=== PATIENT | male | born 1965 | race Caucasian/White ===

== ENCOUNTER 2019-08-20 09:28 | Outpatient (CLI) | payer BC, SELFPAY ==
[2019-08-20 10:11] LABS: Basophils Percent Auto 0.5 % (0.2-1.2); Eosinophils Absolute Auto 0.1 K/mm3 (0-0.3); Eosinophils Percent Auto 2.4 % (0-4.4); Hematocrit 43.7 % (42.0-52.0); Hemoglobin 14.9 g/dL (14.0-18.0); Immature Granulocyte Absolute 0.03 K/mm3 (0.00-0.031); Immature Granulocyte Percent A 0.5 % (0-0.5); Lymphocytes Absolute Auto 1.54 K/mm3 (0.9-3.2); Lymphocytes Percent Auto 26.4 % (18.3-44.2); Mean Corpuscular HGB Conc 34.1 g/dl (32-36); Mean Corpuscular Hemoglobin 31.6 pg (26-34); Mean Corpuscular Volume 92.6 fl (80-100); Mean Platelet Volume 11.4 fl (7.4-10.4); Monocytes Absolute Auto 0.6 K/mm3 (0.1-0.6); Monocytes Percent Auto 10.1 % (2.6-8.5); Neutrophils Absolute Auto 3.5 K/mm3 (1.3-6.7); Neutrophils Percent Auto 60.1 % (45.5-73.1); Platelet Count Result 155 k/mm3 (150-375); Red Blood Count 4.72 M/mm3 (4.6-6.20); Reticulocyte Hemoglobin Conten 37.4 pg (28.2-35.7); Reticulocyte Percent 1.59 % (0.7-4.3); Reticulocytes Absolute 0.08 B/L (32.2-175.7); White Blood Count 5.8 K/mm3 (4.5-10.0)
[2019-08-20 10:34] LABS: Alanine Aminotransferase 21 U/L (4-50); Albumin Level 4.3 g/dL (3.5-5.1); Alkaline Phosphatase 90 U/L (38-126); Aspartate Amino Transferase 32 U/L (17-59); Bilirubin,Total 0.3 mg/dL (0.2-1.3); Blood Urea Nitrogen 15 mg/dL (9-20); Calcium 9.1 mg/dL (8.4-10.2); Carbon Dioxide 27 mmol/L (22-30); Chloride 104 mmol/L (98-107); Estimated Glomerular Filt Rate > 60; Glucose 101 mg/dL (75-110); Potassium 4.1 mmol/L (3.4-5.0); Sodium 138 mmol/L (137-145)
[2019-08-20 10:55] LABS: Iron 134 ug/dL (49-181)
[2019-08-20 11:04] LABS: Percent Iron Saturation 39 % (20-50)
== END 2019-08-20 09:29 | disposition home or self-care (01) ==
DX: E83.119 Hemochromatosis, unspecified (principal)
CPT/HCPCS: 36415; 80053; 82728; 83540; 83550; 85025; 85046

== ENCOUNTER 2019-09-03 00:42 | Outpatient (CLI) | payer BC, SELFPAY ==
[2019-09-03 18:12] LABS: SARS-CoV-2 RNA PCR Negative
== END 2019-09-03 00:43 | disposition home or self-care (01) ==
LOC: ANHCOVIDDT 00:42
PROVIDERS: PCP Internal Medicine; Visit Provider Surgery
DX: Z20.828 Contact with and (suspected) exposure to other viral communicable diseases (principal); Z01.812 Encounter for preprocedural laboratory examination
CPT/HCPCS: 87635; C9803; U0003

== ENCOUNTER 2019-09-05 01:28 | Day surgery (SDC) | payer BC, SELFPAY ==
[2019-08-26 09:15] VITALS: BMI 30.7
[2019-09-05] VITALS (8 sets, daily range): BP systolic 102–122; BP diastolic 57–75; PULSE 69–84; RESP 10–20; TEMP 36.3–36.6; O2SAT 94–100
[2019-09-05] MEDS: LACTATED RINGERS 1,000 ML 30 ML IV CONT ×2 (08:51→10:55)
[2019-09-05] MEDS: IBUPROFEN IV 800 MG/200 ML 800 MG/200 ML BAG 400 MG IVPB (09:00)
--- NOTE | 2019-09-05 09:51 | P.PNAN_ITS ---
Anes - Initial Pre Proc Eval Procedure: Operation Date: 09/05/19 10:30 Proposed Procedures p Umbilical Hernia Repair, Possible Mesh - Alex Vo DO Date/Time: 09/05/19 09:51 Surgeon: Alex Vo DO Pre Op Diagnosis: umbilical hernia Patient Data Age: 53 Gender: M Height: 5 ft 11 in Weight: 101.1 kg Last Vital Signs Temp 36.6 C 09/05/19 09:06 Pulse 72 09/05/19 09:06 BP 116/75 09/05/19 09:06 Pulse Ox 97 09/05/19 09:06 Allergies Allergy/AdvReac Type Severity Reaction Status Date / Time No Known Allergies Allergy Verified 08/26/19 09:29 Home Medications Medication Instructions Recorded Confirmed Type epinephrine 0.3 mg/0.3 mL 0.3 mg IM ONCE 08/14/19 08/26/19 History injection, auto-injector Patient hx anesthesia problems: none Family hx anesthesia problems: none PMFSH Past Medical History Medical History Hemochromatosis Surgical History Surgical History H/O anterior cruciate ligament surgery Family History Family History Father Enlarged heart Mother Diabetes mellitus Sibling Stomach cancer Sibling Cancer Daughter Diabetes mellitus Other Cancer Social History Social History Smokeless tobacco user: chewing tobacco Alcohol intake: current Substance use: never Additional occupation/education comments: [employer]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 Questions were solicited and answers provided to the satisfaction of the patient/family/POA.
--- NOTE | 2019-09-05 10:01 | WPDHPUPDATE1 ---
History and Physical Update Update Date/Time: 09/05/19 10:01 History and Physical has been reviewed, including an updated exam of the patient. There are NO changes in the patient's condition. Risks, benefits, and alternatives have been discussed and questions answered. Patient agrees to proceed with procedure.
[2019-09-05] MEDS: ceFAZolin 2 GM/D5W 50 ML 2 GM/50 ML BAG IVPB (10:12)
[2019-09-05] MEDS: BUPIVACAINE/EPINEPHRINE 0.5% 30 ML VIAL INFILTRATE (10:34)
--- NOTE | 2019-09-05 11:04 | P.OP_ITS ---
Procedure Note - Detailed Date of procedure: 09/05/19 Pre-op diagnosis: umbilical hernia Post-op diagnosis: same Procedure performed: Umbilical hernia repair Description of procedure: * Procedure as well as risks, benefits, and al ternatives were discussed with the patient. Written consent was obtained and placed in chart prior to procedure. Patient was brought back to surgical suite. He was placed supine on operating table. He was then intubated by Anesthesia Department. His abdomen was prepped and draped in sterile fashion using chlorhexidine prep. 0.5% bupivacaine with epinephrine was infiltrated locally around the operative area. A 3 cm curvilinear incision was made just superior to the umbilicus using a 15 blade scalpel. Electrocautery was used for hemostasis and for dissection down through the subcutaneous fat. Hernia sac was encountered and this was carefully freed up from surrounding subcutaneous fat using electrocautery. The hernia sac was freed up all the way down to the level of the fascia, and then it was transected using electrocautery. The hernia sac was excised and sent to the lab for pathology. The umbilical stalk was then lifted off of the fascia with electrocautery. The hernia defect was then measured. This was measuring approximately 5 mm. The decision was made to repair this primarily using 0 Ethibond [id number] permanent sutures. The fascia of the hernia defect was then reapproximated over the mesh using 0 Ethibond [id number] sutures. The repair was inspected and appeared secure. 0.5% bupivacaine with epinephrine was infiltrated around the fascia and subcutaneous space. The umbilical stalk was then reapproximated to the fascia using a 3 0 Vicryl simple interrupted suture. The deep dermis was reapproximated using 3 0 Vicryl simple interrupted sutures, and then the skin was approximated using 4 Monocryl running subcuticular suture. Exofin glue was then applied on top. The patient was then awakened from anesthesia, extubated, and transferred to [facility]. Anesthesia: GLMA and local (0.5% bupivacaine with epinephrine) Surgeon: Alex Vo DO Estimated blood loss (mL): 5 Pathology: yes (Hernia sac) Complications: No immediate complications Condition: stable Disposition: same day Findings: Krishna is a 53 y/o female who presents with an umbilical hernia. He reports first noticing a bulge several months ago after losing about 40lbs. He states the area is completely asymptomatic. He does not experience pain with activity or overlying skin changes.The bulge is easily reducible. He was found to have an umbilical hernia protruding just superior to the umbilical stalk. Discussions were made with the patient about treatment options, and decision was made to proceed with umbilical hernia repair with possible mesh. Umbilical hernia repair was performed. The patient was found to have a hernia sac containing preperitoneal fat protruding just above the umbilical stalk. The hernia sac was excised and sent to the lab for pathology. The fascia was cleared circumferentially around the hernia and the hernia defect was measured. This was a very small hernia only measuring approximately 5 mm. The decision was made to close this primarily. A total of 3 sutures were placed transversely to close the hernia defect without tension. No other abnormalities were noted.
== END 2019-09-05 12:44 | disposition home or self-care (01) ==
PROVIDERS: PCP Internal Medicine; Visit Provider Surgery
PROC: (CPT 49585; principal; 2019-09-05 10:30)
DX: K42.9 Umbilical hernia without obstruction or gangrene (principal); F17.220 Nicotine dependence, chewing tobacco, uncomplicated; E66.9 Obesity, unspecified; Z68.31 Body mass index [BMI] 31.0-31.9, adult
CPT/HCPCS: 49585; 88300; J0690; J1100; J1741; J2250; J2405; J2704; J3010; J7120

== ENCOUNTER 2020-12-25 14:59 | Outpatient (CLI) | payer BC, SELFPAY ==
--- NOTE | ~2020-12-25 | XR_ITS ---
XR ankle LT min 3V DATE: 12/25/2020 15:20 INDICATION: Left lateral ankle pain and tenderness TECHNIQUE: 4 views COMPARISON: None FINDINGS: There are accessory ossicle subjacent to the tip of the medial malleolus, possibly accessor y ossicles or old ununited fractures. No recent fracture or dislocation of the ankle or disruption of the ankle mortise. No periosteal reac tion or bone destruction. Tibiotalar osteoarthritis. Posterior calcaneal enthesopathy. IMPRESSION: Tibiotalar osteoarthritis No recent fracture or dislocation Posterior calcaneal enthesopathy Reviewed, dictated and finalized at location A.
== END 2020-12-25 15:00 | disposition home or self-care (01) ==
LOC: CHSIMG 15:00
PROVIDERS: PCP Internal Medicine; Visit Provider Internal Medicine
DX: M25.572 Pain in left ankle and joints of left foot (principal)
CPT/HCPCS: 73610

== ENCOUNTER 2021-01-02 06:40 | Outpatient (CLI) | payer BC, SELFPAY ==
--- NOTE | ~2021-01-02 | MR_ITS ---
EXAMINATION: MR ankle LT wo con DATE: 01/02/2021 07:55 INDICATION: Chronic left ankle pain. TECHNIQUE: Magnetic resonance imaging (MRI) of the left ankle was performed without intravenous contr ast. Sequences included sagittal PD-weighted FS FSE, sagittal PD-weighted FSE, coronal PD-weighted FS FSE, coronal PD-weighted FSE, axial PD-weighted FS FSE, and axial PD-weighted FSE. COMPARISON: Left ankle radiographs 12/25/2020 FINDINGS: Medial ankle ligaments: There are changes of prior sprains of the deltoid ligament characterized by thickening and increased signal involving the superficial and deep components with heterotopic ossification within the ligamen t. Lateral ankle ligaments: There are changes of prior sprains of anterior talofibular ligament and calcaneofibular ligament david acterized by thickening and increased signal intensity. Posterior talofibular ligament is intact. The re are changes of prior sprains of anterior and posterior tibiofibular ligaments characterized by thi ckening and increased signal intensity. Tendons: Achilles tendon and the medial ankle tendons are normal. There is mild tenosynovitis of extensor digi torum. There is severe tendinopathy of peroneus brevis and peroneus longus tendons with near-complete tears. A skin marker overlies this area. Plantar fascia: There is mild plantar fasciitis characterized by thickening and increased signal in the central band. Bones/other: Bone alignment is normal. No fracture. There is mild osteoarthritis of many of the midfoot joints. Th ere is deep partial thickness cartilage loss in tibiotalar joint. There are osteochondral lesions of the medial and lateral talar domes. Fluid: There is a small subtalar joint effusion. IMPRESSION: 1. Severe tendinopathy and near-complete tears involving peroneus brevis and peroneus longus tendons. 2. Moderate chondrosis of tibiotalar joint. 3. Changes of chronic medial and lateral ankle sprains. Reviewed, dictated and finalized at location A. IMPRESSION: 1. Severe tendinopathy and near-complete tears involving peroneus brevis and pe roneus longus tendons. 2. Moderate chondrosis of tibiotalar joint. 3. Changes of chronic medial and lateral ankle sprains.
== END 2021-01-02 06:41 | disposition home or self-care (01) ==
LOC: CHSIMG 06:44
PROVIDERS: PCP Internal Medicine; Visit Provider Internal Medicine
DX: M25.572 Pain in left ankle and joints of left foot (principal)
CPT/HCPCS: 73721

== ENCOUNTER 2021-01-14 13:58 | Outpatient (RCR) | payer BC, SELFPAY ==
--- NOTE | 2021-01-14 15:38 | PTOPEVAL ---
Thank you for referring Krishna Rueda to [facility].? The patient is scheduled to be seen for therapy? ____x/week for ___ weeks. Please review, sign, date and return this plan of care VANDANA. I agree with and certify that the following plan of care is medically necessary. Referring Physician Date Admitting Provider: Attending Provider: Fredi Cheney MD Referring Provider: *PT Outpatient Evaluation Start: 01/14/21 14:07 Freq: Status: Active Protocol: Document 01/14/21 14:07 [facility] (Rec: 01/14/21 15:33 [facility] [id number]) Therapy Assessment Status Assessment Status Assessment Status Evaluation Outpatient Past Medical History Neurological History Hx Neurological Disorders No Significant History Cardiovascular History Hx Cardiac Disorders No Significant History Respiratory History Hx Respiratory Disorders No Significant History Gastrointestinal History Hx Gastrointestinal Disorders No Significant History Genitourinary History Hx Genitourinary Disorders No Significant History Musculoskeletal History Hx Orthopedic Surgery Yes: l knee acl Hematological History Hx Hematological Disorders No Significant History Endocrine History Hx Endocrine Disorders No Significant History HEENT History Hx Deviated Septum Yes: 3 nasal fx's Integumentary History Hx Skin Disorders No Significant History Reproductive History Hx Reproductive Disorders No Significant History Psychosocial History Hx Psychiatric Disorders No Significant History Pain History History of Any Previous or Ongoing No Significant History Instance of Pain Anesthesia History Hx Anesthesia Reactions No Significant History Evaluation Information Problem Diagnosis peroneal tendonitis L ankle. Onset 01/11/21 Additional Evaluation Detail LEFS = 42% functionally declined Subjective Information patient reports he has no Query Text:As Reported By Patient/ injury to the L ankle recently Family . he reports injuries in the past, but nothing new. he reports he began having pain in the outside of his L ankle about 3 months ago. he reports the pain is now gravitating up his leg into the inside of his L knee. he reports he has had no injections and currently wears no braces or orthotics. he reports he had a brace that he wears at work, and is going to get orthotics
--- NOTE | 2021-01-28 15:47 | PTOPEVAL ---
Thank you for referring Krishna Rueda to [facility].? The patient is scheduled to be seen for therapy? ____x/week for ___ weeks. Please review, sign, date and return this plan of care VANDANA. I agree with and certify that the following plan of care is medically necessary. Referring Physician Date Admitting Provider: Attending Provider: Fredi Cheney MD Referring Provider: *PT Outpatient Evaluation Start: 01/14/21 14:07 Freq: Status: Active Protocol: Document 01/28/21 14:00 [facility] (Rec: 01/28/21 15:46 [facility] [id number]) Therapy Assessment Status Assessment Status Assessment Status Discharge Outpatient Past Medical History Neurological History Hx Neurological Disorders No Significant History Cardiovascular History Hx Cardiac Disorders No Significant History Respiratory History Hx Respiratory Disorders No Significant History Gastrointestinal History Hx Gastrointestinal Disorders No Significant History Genitourinary History Hx Genitourinary Disorders No Significant History Musculoskeletal History Hx Orthopedic Surgery Yes: l knee acl Hematological History Hx Hematological Disorders No Significant History Endocrine History Hx Endocrine Disorders No Significant History HEENT History Hx Deviated Septum Yes: 3 nasal fx's Integumentary History Hx Skin Disorders No Significant History Reproductive History Hx Reproductive Disorders No Significant History Psychosocial History Hx Psychiatric Disorders No Significant History Pain History History of Any Previous or Ongoing No Significant History Instance of Pain Anesthesia History Hx Anesthesia Reactions No Significant History Evaluation Information Problem Diagnosis peroneal tendonitis L ankle. Onset 01/11/21 Additional Evaluation Detail LEFS = 18% functionally declined Subjective Information patient reports he feels good Query Text:As Reported By Patient/ this date. he report shis Family pain is significantly improved , mobility is improved, and he is tolerating work and home/ rec activities much better. he reports he is ready to DC therapy this date. Pain Assessment Timing of Pain Assessment Timing of Pain Assessment Assessment Pain Scale Pain Scale Used Numeric (1 - 10) Self Report Pain Assessment Right Knee(s) Reported Pain Level 0 Left Lateral Ankle(s) Reported Pain Level 0 Greatest Pain Intensity 3 Pain Score Pain Score 0,0: Self Report Interventions Used Interventions Used By Clinicians Activity o
== END 2021-01-28 16:28 | disposition home or self-care (01) ==
LOC: CHSPT 13:58
PROVIDERS: Visit Provider Orthopaedic Surgery
DX: M76.72 Peroneal tendinitis, left leg (principal); M76.71 Peroneal tendinitis, right leg
CPT/HCPCS: 97110; 97112; 97161; 97530

== ENCOUNTER 2021-04-19 15:51 | Outpatient (CLI) | payer BC, SELFPAY ==
--- NOTE | ~2021-04-19 | XR_ITS ---
EXAMINATION: XR knee LT 3V EXAM DATE: 04/19/2021 16:23 INDICATION: Left knee pain, limited movement. TECHNIQUE: Three projections of the left knee. There is no prior study for comparison. FINDINGS: No evidence osteochondral defect or joint body in the left knee joint. There is apprecia jade ligament repair, with anchors appearing in position. Small to moderate-sized joint effusion. Ther e is moderate tricompartmental osteoarthritis. There are no acute fractures identified. No evidence o f osteochondral defect. IMPRESSION: 1. Moderate left knee osteoarthritis. 2. Small to moderate joint effusion. 3. Cruciate repair anchors. Reviewed, dictated and finalized at location G. [employer] WORK[employer]
== END 2021-04-19 15:52 | disposition home or self-care (01) ==
PROVIDERS: PCP Internal Medicine; Visit Provider Nurse Practitioner Family
DX: M25.562 Pain in left knee (principal)
CPT/HCPCS: 73562

== ENCOUNTER 2022-04-04 07:13 | Outpatient (CLI) | payer BC, SELFPAY ==
--- NOTE | ~2022-04-04 | XR_ITS ---
XR knee RT min 4V DATE: 04/04/2022 07:38 INDICATION: Lateral and posterior knee pain for 2 months. No known injury. TECHNIQUE: 4 views COMPARISON: None FINDINGS: There is prominent tricompartment osteoarthritis, most severe at the medial compartment. Th ere is prominent particular spurring at all 3 compartments. There is nearly complete loss of medial c ompartment joint space, eburnation of the apposing medial femoral condyle and medial tibial plateau. No fracture or dislocation, periosteal reaction or bone destruction, radiopaque intra-articular loose body or chondrocalcinosis is noted. No knee joint effusion is evident. 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
== END 2022-04-04 07:14 | disposition home or self-care (01) ==
LOC: CHSIMG 07:15
PROVIDERS: PCP Internal Medicine; Visit Provider Orthopaedic Surgery
DX: M25.561 Pain in right knee (principal); M17.11 Unilateral primary osteoarthritis, right knee
CPT/HCPCS: 73564

== ENCOUNTER 2022-04-06 14:56 | Outpatient (RCR) | payer BC, SELFPAY ==
--- NOTE | 2022-04-06 15:36 | PTOPEVAL1 ---
Assessment and note entered by Roberto Posada Evaluation Information Assessment Status Evaluation Diagnosis right knee pain, ITB syndrome Onset 01/18/22 Subjective Information Pt. reports he developed right knee pain around January. He initially noted the pain with going up and down stairs at work. He reports that he was having increasing pain initially, but has gotten better. He reports he has to go up and down steps and ladders frequently, which will increase his pain. He reports that he was having initially difficulty with sleeping, but has improved as of recently. He reports that his goal is to improve his knee pain. Reported Pain Level Pain Score 3: Self Report Assessment PT Clinical Summary Pt. is a 56 year old male who enters the clinic with lateral right knee pain. Pt. presents with signficant OA of the right knee on xray on this date. He currently presents with impaired ROM, impaired gait, and pain. Continued treatment is indicated in order to improve these areas to allow for improved comfort with stairs and IADL's. Plan of Care Interventions Check Out for Orthotic/Pr,Gait Training,Hot Pack/ Cold Pack,Manual Therapy,Therapeutic Activities, Therapeutic Exercise PT Services Indicated Yes Treatment Frequency and 2x/week x 6 visits Duration These treatments will address the objective and functional deficits as defined above. The patient will be advanced safely and appropriately in order for the patient to progress towards his/her prior level of function. Additional exercises will be introduced and as well as a comprehensive home exercise program upon discharge, if needed, ?to ensure carryover of functional gains achieved in the clinic. This treatment plan has been reviewed and agreement upon by the patient.
== END 2022-05-11 16:23 | disposition home or self-care (01) ==
LOC: CHSPT 14:56
PROVIDERS: Visit Provider Orthopaedic Surgery
DX: M25.561 Pain in right knee (principal); M76.31 Iliotibial band syndrome, right leg
CPT/HCPCS: 97014; 97110; 97140; 97161; G0283

== ENCOUNTER 2022-10-29 11:30 | Emergency (ER) | payer BC, SELFPAY ==
[2022-10-29 11:30] VITALS: BP 139/99; PULSE 98; RESP 18; TEMP 36.3; O2SAT 94
--- NOTE | 2022-10-29 11:35 | ED.SKABFB ---
HPI - Skin/Abscess/Foreign Bdy General Chief complaint: Skin/Abscess/Foreign Body Stated complaint: fish hook in finger Time Seen by Provider: 10/29/22 11:34 Source: patient Mode of arrival: ambulatory Limitations: no limitations History of Present Illness HPI narrative: patient is a 56-year-old male with a fishing hook in his right small palmar finger. complaint: foreign body Onset (ago): minute(s) Tetanus up to date: unsure Severity: mild Severity scale (1-10): 3 Quality: dull Pain Consistency: constant Relieving factors: immobilization Exacerbating factors: palpation Context: other ( Fishing accident) Associated symptoms: denies other symptoms Treatments prior to arrival: none Related Data Home Medications Medication Instructions Recorded Confirmed epinephrine 0.3 mg/0.3 mL 0.3 mg IM ONCE wasp allergy 08/14/19 10/29/22 injection, auto-injector (EpiPen) Allergies Allergy/AdvReac Type Severity Reaction Status Date / Time No Known Allergies Allergy Verified 10/29/22 11:34 Review of Systems Review of Systems: All systems reviewed & are unremarkable except as noted in HPI and below Constitutional: Constitutional: Reports no additional constitutional complaints Eyes: Eyes: Reports no additional eye complaints ENT: Reports system reviewed and no additional complaints, except as documented Cardiovascular: Cardiovascular: Reports no additional cardiovascular complaints Respiratory: Respiratory: Reports no additional respiratory complaints Gastrointestinal: Gastrointestinal: Reports no additional gastrointestinal complaints Genitourinary: Genitourinary: Reports no additional male genitourinary complaints Musculoskeletal: Musculoskeletal: Reports no additional musculoskeletal complaints Integumentary/Breasts: Skin/Breast: Reports system reviewed and no additional complaints, except as docu Neurologic: Reports system reviewed and no additional complaints, except as documented Psychiatric: Psychiatric: Reports no additional psychiatric complaints Endocrine: Endocrine: Reports no additional endocrine complaints Hematologic/Lymphatic: Hematologic/Lymphatic: Reports no additional hematologic/lymphatic complaints Allergic/Immunologic: Allergic/Immunologic: Reports no additional allergic/immunologic complaints PMFSH Past Medical History Medical History Cavovarus deformity of foot, acquired Hemochromatosis Iliotibial band syndrome affecting right lower leg Peroneal tendonitis of left lower extremity Right knee pain Surgical History Surgical History H/O anterior cruciate ligament surgery History of umbilical hernia repair 09/05/19 Family History Family History Father Enlarged heart Mother Diabetes mellitus Sibling Stomach cancer Sibling Cancer Daughter Diabetes mellitus Other Cancer Social History Social History Smoking status: Current every day smoker (chewing tobacco) Smokeless tobacco user: chewing tobacco Alcohol intake: current Substance use: never Living arrangements: with family Occupation/Education: occupation 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
[2022-10-29] MEDS: LIDOCAINE HCL 1% LOCAL INJ 10 ML VIAL INFILTRATE (11:43)
[2022-10-29] MEDS: TETANUS,DIPHTHERIA,AC PERTUSSIS ADULT 0.5 ML (ADACEL) IM (11:44)
[2022-10-29] MEDS: NEOMYCIN/POLYMYXIN/BACITRACIN OINTMENT PACKET 1 PACKET TOPICAL (12:00)
== END 2022-10-29 12:08 | disposition home or self-care (01) ==
PROVIDERS: Emergency Provider Emergency Medicine; PCP Internal Medicine
DX: S61.246A Puncture wound with foreign body of right little finger without damage to nail, initial encounter (principal); Z23 Encounter for immunization; W45.8XXA Other foreign body or object entering through skin, initial encounter
CPT/HCPCS: 90715; 99283